=== PATIENT | male | born 1960 | race Caucasian/White ===

== ENCOUNTER 2022-11-28 04:21 | Emergency (ER) | payer OTHER ==
[~2022-11-28] VITALS: Ht 167.6 cm; Wt 74.8 kg
[2022-11-28 04:39] VITALS: BP 134/68; TEMP 98.1; O2SAT 98
[2022-11-28] MEDS ORDERED: LORAZEPAM 1 MG TABLET ONE (04:42)
[2022-11-28] MEDS ORDERED: LORAZEPAM 1 MG TABLET PO ONE (05:00)
== END 2022-11-28 05:00 | disposition home or self-care (01) ==
LOC: ER 04:22
DX: F41.9 Anxiety disorder, unspecified (principal); F17.200 Nicotine dependence, unspecified, uncomplicated